=== PATIENT | male | born 1960 | race Caucasian/White ===

== ENCOUNTER 2017-02-07 16:07 | Outpatient (CLI) ==
--- NOTE | 2017-02-07 16:42 | DI ---
EXAM: Four views of the left knee. History: Left knee pain. Findings: No acute fracture or dislocation. Mild to moderate tricompartmental joint space narrowin g with subchondral sclerosis, osteophyte formation and subchondral cysts most notable in the medial compartment. Impression: 1. No acute osseous abnormality. 2. Mild to moderate osteoarthritis.
== END 2017-02-07 16:08 | disposition home or self-care (01) ==
LOC: RAD 16:07
PROVIDERS: ATTEND Internal Medicine
DX: M25.562 Pain in left knee (principal)